=== PATIENT | female | born 1945 | race Caucasian/White ===

== ENCOUNTER 2021-11-04 10:16 | Inpatient (IN) | payer MEDICARE, BC ==
[~2021-11-04] VITALS: Ht 165.1 cm; Wt 63.5 kg
[2021-11-04] MEDS ORDERED: ACETAMINOPHEN 650 MG SUPP.RECT RC ONE ×2 (10:30→10:56)
[2021-11-04] MEDS ORDERED: IV NORMAL SALINE 1000 ML BAG IV ONE ×2 (10:30)
[2021-11-04] MEDS ORDERED: CEFTRIAXONE 1 G in IV DEXTROSE 5% 50 ML IV ONE (10:30)
[2021-11-04] MEDS ORDERED: VANCOMYCIN IV 1,000 MG in IV DEXTROSE 5% 250 ML IV ONE (10:30)
[2021-11-04] MEDS ORDERED: ATOR10TA PO ×2 (10:49→15:27)
[2021-11-04] MEDS ORDERED: FURO-151 PO (10:49)
[2021-11-04] MEDS ORDERED: ASPI81TA31 PO ×2 (10:49→15:27)
[2021-11-04] MEDS ORDERED: CHOL4PAC2 PO ×2 (10:49→15:27)
[2021-11-04] MEDS ORDERED: TRIH2TAB5 PO (10:49)
[2021-11-04] MEDS ORDERED: LEVO50TA8 PO ×2 (10:49→15:27)
[2021-11-04] MEDS ORDERED: RISP2TAB85 PO ×2 (10:49→15:27)
[2021-11-04] MEDS ORDERED: CLON0.1T PO ×2 (10:49→15:27)
[2021-11-04] MEDS ORDERED: CEPH500T PO ×2 (10:49→15:27)
[2021-11-04] MEDS ORDERED: [UNRECOGNIZED DRUG - CODE] PO ×2 (10:49→15:27)
[2021-11-04] MEDS ORDERED: METO100T14 PO (10:49)
[2021-11-04] MEDS ORDERED: CINA30TA2 PO (10:49)
[2021-11-04] MEDS ORDERED: DIVA-78 PO ×2 (10:49→15:27)
--- NOTE | 2021-11-04 10:52 | NUR ---
pt bib ems, placed in 2A, placed on monitors and o2 NC at 6%, sats now 96%, was 80% on RA. iv started in right AC, blood and wound culture collected and sent to lab.
[2021-11-04] MEDS ORDERED: CEFTRIAXONE /D5W 50ML IVPB **ER PYXIS IV ONE (10:56)
[2021-11-04] MEDS ORDERED: VANCOMYCIN IV 200 ML ONE (10:56)
[2021-11-04 11:02] LABS: HEMATOCRIT 29.1 % (31.2-41.9); MEAN CORPUSCULAR HEMOGLOBIN 30.5 uug (24.7-32.8); PLATELET COUNT (AUTO) 196 K/uL (179-408)
--- NOTE | 2021-11-04 11:06 | NUR ---
ER MD spoke to admitting, Dr Hogan. Pt to be admitted to Tele bed.
[2021-11-04 11:24] LABS: ALANINE AMINOTRANSFERASE 14 U/L (14-59); ALKALINE PHOSPHATASE 108 U/L (50-136); ASPARTATE AMINOTRANSFERASE 37 U/L (15-37); BILIRUBIN,DIRECT 0.1 mg/dL (0.0-0.2); BILIRUBIN,TOTAL 0.3 mg/dL (0.2-1.0); CARBON DIOXIDE 29 mmol/L (21-32); CHLORIDE 111 mmol/L (98-107); CREATININE 2.8 mg/dL (0.6-1.3); GLUCOSE 202 mg/dL (74-106); POTASSIUM 3.6 mmol/L (3.5-5.1); TOTAL PROTEIN, SERUM 6.6 g/dL (6.4-8.2)
[2021-11-04 11:25] LABS: UREA NITROGEN, BLOOD 90 mg/dL (7-18)
[2021-11-04 11:28] LABS: *BILIRUBIN,URIN NEGATIVE (NEGATIVE); *BLOOD, URINE 1+ (NEGATIVE); *CLARITY,URINE CLOUDY (CLEAR); *COLOR,URINE YELLOW (YELLOW); *KETONES,URINE NEGATIVE (NEGATIVE); *UROBILINOGEN,URINE 0.2 E.U./dl (NORMAL); LEUKOCYTE ESTERASE ,URINE 3+ (NEGATIVE); NITRITE, URINE NEGATIVE (NEGATIVE); PH,URINE 5.5 (5.0-8.0); UGLUCOSE NEGATIVE (NEGATIVE)
[2021-11-04 12:17] LABS: BACTERIA,URINE FEW /HPF (NONE SEEN); SQUAMOUS EPITHELIAL CELL,UR FEW /HPF (NONE SEEN); WBC,URINE 50-80 /HPF (0-3)
--- NOTE | 2021-11-04 12:25 | NUR ---
report called in at 1226, spoke to Julian ARCINIEGA. Pt to be transfered.
[2021-11-04 12:57] VITALS: BP 161/74
--- NOTE | 2021-11-04 12:59 | NUR ---
patient taken upstairs with chart and belongings. pt in stable condition.
--- NOTE | 2021-11-04 14:33 | NUR ---
Admitted patient from ED dx severe sepsis at 1300. Upon admission patient is lethargic and slow to respond and is oriented to name only. On 2 lpm no ss of pain or respiratory distress. SR on telemonitor. IV Vancomycin still infusing via rfa iv. FC is intact cloudy urine and sediments noted. Open wounds to bilateral heels are noted and filed. Routine admission done. Dr. Riggs is made aware.
[2021-11-04] MEDS: REMEDY ESSENTIAL ZINC PASTE 113 GM TOP SCH ×2 (14:53→20:34)
[2021-11-04] MEDS ORDERED: CINA60TA4 PO (15:27)
[2021-11-04] MEDS ORDERED: FURO40TA5 PO (15:27)
[2021-11-04] MEDS ORDERED: METO-358 PO ×2 (15:27→18:48)
--- NOTE | 2021-11-04 15:27 | NUR ---
Called [facility] and [facility] ([phone]) and spoke with Karen and obtained patient's active medications. Medications are entered in system and MD made aware to recondile. Per Karen, patient's responsible democrat is her brother Imer [phone].
[2021-11-04 16:00] VITALS: BP 168/87
--- NOTE | 2021-11-04 16:15 | NUR ---
Dr. Riggs made aware of bp 168/87 hr 98 with order for vasotec 2.5mg iv q6 prn for sbp above 150 noted.
[2021-11-04] MEDS ORDERED: ENALAPRILAT DIHYDRATE 1.25 MG/1 ML VIAL IV PRN (16:30)
[2021-11-04] MEDS ORDERED: ONDANSETRON 4 MG/2 ML VIAL IV PRN (17:00)
[2021-11-04] MEDS ORDERED: ACETAMINOPHEN 325 MG TABLET PO PRN (17:00)
[2021-11-04] MEDS ORDERED: TEMAZEPAM 15 MG CAPSULE PO PRN (17:00)
[2021-11-04] MEDS ORDERED: HYDROCODONE/APAP 5-325MG TABLET PO PRN (17:00)
[2021-11-04] MEDS ORDERED: ENALAPRILAT DIHYDRATE 1.25 MG/1 ML VIAL IV ONE (17:30)
[2021-11-04] MEDS: POTASSIUM CHLORIDE 20 MEQ in IV 1/2NS 1000 ML 1,000 ML IV PRN (17:52)
[2021-11-04] MEDS: ATORVASTATIN 10 MG TABLET PO SCH (20:21)
[2021-11-04] MEDS: risperiDONE 2 MG TABLET PO SCH ×2 (20:21→20:27)
[2021-11-04] MEDS: CLONIDINE HCL 0.1 MG TABLET PO SCH (20:21)
[2021-11-04] MEDS: DOCUSATE SODIUM 100 MG CAPSULE PO SCH (20:22)
[2021-11-04] MEDS: METOPROLOL TARTRATE 50 MG TABLET PO SCH (20:22)
[2021-11-04] MEDS: DIVALPROEX 500 MG TABLET.DR PO SCH (20:25)
[2021-11-04 20:43] VITALS: BP 129/61
[2021-11-04] MEDS ORDERED: MEROPENEM 500 MG in IV NORMAL SALINE 50 ML IV SCH ×2 (22:00→22:45)
[2021-11-04] MEDS ORDERED: DOXYCYCLINE HYCLATE IV 100 MG in IV DEXTROSE 5% 100 ML IV SCH (22:05)
[2021-11-04] MEDS ORDERED: MEROPENEM 500 MG VIAL IV ONE (22:44)
[2021-11-04] MEDS ORDERED: DOXYCYCLINE HYCLATE 100 MG INJ IV ONE (22:47)
[2021-11-05 00:29] VITALS: BP 159/74
[2021-11-05 04:40] VITALS: BP 169/71
[2021-11-05] MEDS: LEVOTHYROXINE SODIUM 50 MCG TABLET PO SCH (06:21)
[2021-11-05] MEDS: PANTOPRAZOLE SODIUM 40 MG TABLET.DR PO SCH (06:21)
[2021-11-05 06:32] LABS: HEMATOCRIT 26.7 % (31.2-41.9); MEAN CORPUSCULAR HEMOGLOBIN 31.1 uug (24.7-32.8); MEAN CORPUSCULAR VOLUME 94.7 fL (75.5-95.3); PLATELET COUNT (AUTO) 187 K/uL (179-408)
[2021-11-05] MEDS: POTASSIUM CHLORIDE 20 MEQ in IV 1/2NS 1000 ML 1,000 ML IV PRN (06:46)
[2021-11-05 07:14] LABS: ALANINE AMINOTRANSFERASE 8 U/L (14-59); ALKALINE PHOSPHATASE 95 U/L (50-136); ASPARTATE AMINOTRANSFERASE 27 U/L (15-37); BILIRUBIN,TOTAL 0.3 mg/dL (0.2-1.0); CARBON DIOXIDE 25 mmol/L (21-32); CHLORIDE 116 mmol/L (98-107); CREATININE 2.4 mg/dL (0.6-1.3); GLUCOSE 181 mg/dL (74-106); HDL CHOLESTEROL 46 mg/dL (40-60); MAGNESIUM 2.1 mg/dL (1.8-2.4); PHOSPHOROUS 3.5 mg/dL (2.5-4.9); POTASSIUM 4.2 mmol/L (3.5-5.1); TOTAL PROTEIN, SERUM 6.2 g/dL (6.4-8.2); TRIGLYCERIDES 138 MG/DL (30-150); UREA NITROGEN, BLOOD 77 mg/dL (7-18)
[2021-11-05 07:20] LABS: THYROID STIMULATING HORMONE 2.295 mIU/mL (0.358-3.740)
[2021-11-05 07:31] LABS: CHOLESTEROL 108 mg/dL (<200)
--- NOTE | 2021-11-05 08:00 | NUR ---
AWAKE ALERT AND RESPONSIVE BUT VERY SLUGGISH., FOLLOWS SIMPLE COMMANDS. DENIES PAIN , O2 SAT 88-90% ON 2L NC. PLACED ON 3L O2 SAT WENT UP TO 95%. REPOSITIONED COMFORTABLY
[2021-11-05 08:12] LABS: IRON, SERUM 21 ug/dL (50-175)
[2021-11-05 08:44] LABS: VANCOMYCIN,RANDOM 13.3 ug/mL (18.0-26.0)
[2021-11-05] MEDS: ASPIRIN 81 MG TAB.CHEW PO SCH (09:09)
[2021-11-05] MEDS: DIVALPROEX 500 MG TABLET.DR PO SCH (09:09)
[2021-11-05] MEDS: CHOLESTYRAMINE/SUCROSE 4 GM PACKET PO SCH (09:10)
[2021-11-05] MEDS: CINACALCET HCL 30 MG TABLET PO SCH (09:10)
[2021-11-05] MEDS: REMEDY ESSENTIAL ZINC PASTE 113 GM TOP SCH ×2 (09:11→22:40)
[2021-11-05] MEDS: CLONIDINE HCL 0.1 MG TABLET PO SCH ×2 (09:17→17:37)
[2021-11-05] MEDS: METOPROLOL TARTRATE 50 MG TABLET PO SCH ×2 (09:18→22:38)
--- NOTE | 2021-11-05 09:30 | NUR ---
MIDLINE INSERTED LEFT UPPER ARM
[2021-11-05] MEDS ORDERED: CEFTRIAXONE 1 G in IV DEXTROSE 5% 50 ML IV SCH (10:00)
--- NOTE | 2021-11-05 10:00 | NUR ---
SEEN BY HOSPITALIST FOR FOLLOW-UP WITH ORDERS. SEE NOTES
[2021-11-05] MEDS: DOXYCYCLINE HYCLATE IV 100 MG in IV DEXTROSE 5% 100 ML IV SCH ×2 (10:37→22:43)
[2021-11-05] MEDS ORDERED: ALBUTEROL SULFATE 2.5 MG/3 ML NEBU IH SCH (11:30)
--- NOTE | 2021-11-05 11:30 | NUR ---
SEEN BY SPEECH THERAPY FOR SWALLOW EVAL, ADVISED NPO AND WILL FOLLOW-UP IN AM.
[2021-11-05] MEDS: FUROSEMIDE 40 MG/4 ML VIAL IV SCH (11:41)
[2021-11-05] MEDS: MEROPENEM 0.5 G in IV NORMAL SALINE 50 ML IV SCH (11:41)
[2021-11-05] MEDS: methylPREDNISolone SOD SUCC 40 MG/ML VIAL IV SCH ×2 (11:43→22:36)
[2021-11-05] MEDS: IPRATROPIUM BROMIDE 0.5 MG/2.5 ML NEBU NEB SCH ×4 (11:54→23:10)
[2021-11-05 12:00] VITALS: BP 148/70
--- NOTE | 2021-11-05 12:14 | NUR ---
SEEN BY RT SUCTIONED ORALLY WITH MODERATE AMOUNT OF FOOD PREVIOUSLY TAKEN. HHN GIVEN AFTER
--- NOTE | 2021-11-05 12:25 | NUR ---
WOUND CARE CONSULT: PT PRESENTS WITH SACRAL INTACT DEEP TISSUE INJURY WITH SCARRING AND BILATERAL HEEL WOUNDS, PRESENT ON ADMISSION. DR MATUTE CALLED FOR DPM CONSULT. RECOMMENDATIONS MADE FOR SKIN PROTECTION. DISCUSSED WITH NURSING STAFF. FIRST STEP LOW AIRLOSS MATTRESS IS ON ORDER. MD IN AGREEMENT WITH PLAN OF CARE.
[2021-11-05] MEDS ORDERED: ALBUTEROL SULFATE 2.5 MG/3 ML NEBU NEB SCH (13:32)
[2021-11-05] MEDS: ALBUTEROL SULFATE 2.5 MG/3 ML NEBU NEB SCH ×3 (15:12→23:10)
[2021-11-05 16:00] VITALS: BP 161/74
--- NOTE | 2021-11-05 17:28 | NUR ---
KEEP ON NPO TILL FURTHER ORDERS WILL F/U SPEECH, REMAINS SR ON MONITOR HR 93.
[2021-11-05] MEDS: DIVALPROEX SPRINKLE 125 MG CAP.SPRINK PO SCH (17:37)
[2021-11-05 20:00] VITALS: BP 131/56
--- NOTE | 2021-11-05 21:00 | NUR ---
RECD PT IN BED, O2 INHALATION AT 3L/MIN VIA NASAL CANNULA,MIDLINE ON LEFT UPPER ARM PATENT AND INTACT. IVF INFUSING WELL.ASPIRATION PRECAUTION OBSERVED,MRSA ON WOUND ON LOWER EXTREMITIES NOTED. CATH IN PLACE,REPOSITIONED FOR COMFORT .
[2021-11-05] MEDS: DOCUSATE SODIUM 100 MG CAPSULE PO SCH (22:36)
[2021-11-05] MEDS: ATORVASTATIN 10 MG TABLET PO SCH (22:37)
[2021-11-05] MEDS: risperiDONE 2 MG TABLET PO SCH (22:38)
--- NOTE | 2021-11-06 | NUR ---
SPUTUM SPECIMEN SENT TO LAB.DUE MEDS GIVEN.SLEPT AT LONG INTERVALS.KEPT DRY AND CLEAN.
[2021-11-06 00:14] VITALS: BP 89/45
[2021-11-06] MEDS: MEROPENEM 0.5 G in IV NORMAL SALINE 50 ML IV SCH ×3 (00:42→23:39)
[2021-11-06] MEDS: IPRATROPIUM BROMIDE 0.5 MG/2.5 ML NEBU NEB SCH ×6 (03:27→23:56)
[2021-11-06] MEDS: ALBUTEROL SULFATE 2.5 MG/3 ML NEBU NEB SCH ×6 (03:27→23:56)
[2021-11-06 04:05] VITALS: BP 105/49
--- NOTE | 2021-11-06 05:43 | NUR ---
AM CARE DONE, LEFT ARM APPEARS SWOLLEN, KEPT ELEVATED ON PILLOW.SKIN INTEGRITY ISSUES NOTED, PHOTOS TAKEN.
--- NOTE | 2021-11-06 05:45 | NUR ---
STILL ON TELE ,SINUS RHYTHM 98.NO ACUTE DISTRESS NOTED.
--- NOTE | 2021-11-06 05:46 | NUR ---
ALERT/ORIENTED X2.NO COMPLAINTS PRESENTED.
[2021-11-06] MEDS: PANTOPRAZOLE SODIUM 40 MG TABLET.DR PO SCH (06:55)
[2021-11-06] MEDS: LEVOTHYROXINE SODIUM 50 MCG TABLET PO SCH (06:55)
--- NOTE | 2021-11-06 07:53 | NUR ---
RECEIVED PATIENT RESTING COMFORTABLY IN BED, BREATHING TX GIVEN ROUTINELY, O2 AT 3L NC SATURATING 96%. NO SIGNS OF ACUTE PAIN. SR ON MONITOR
[2021-11-06 08:07] LABS: HEMATOCRIT 28.3 % (31.2-41.9); MEAN CORPUSCULAR HEMOGLOBIN 30.3 uug (24.7-32.8); MEAN CORPUSCULAR VOLUME 96.5 fL (75.5-95.3); PLATELET COUNT (AUTO) 207 K/uL (179-408)
[2021-11-06 09:00] LABS: CARBON DIOXIDE 23 mmol/L (21-32); CHLORIDE 115 mmol/L (98-107); CREATININE 3.1 mg/dL (0.6-1.3); MAGNESIUM 2.2 mg/dL (1.8-2.4); POTASSIUM 4.4 mmol/L (3.5-5.1)
[2021-11-06] MEDS: DIVALPROEX SPRINKLE 125 MG CAP.SPRINK PO SCH ×2 (09:00→16:31)
[2021-11-06] MEDS: CHOLESTYRAMINE/SUCROSE 4 GM PACKET PO SCH (09:00)
[2021-11-06] MEDS: CLONIDINE HCL 0.1 MG TABLET PO SCH ×2 (09:00→16:31)
[2021-11-06] MEDS: ASPIRIN 81 MG TAB.CHEW PO SCH (09:00)
[2021-11-06] MEDS: FUROSEMIDE 40 MG/4 ML VIAL IV SCH (09:07)
[2021-11-06] MEDS: methylPREDNISolone SOD SUCC 40 MG/ML VIAL IV SCH (09:07)
[2021-11-06] MEDS: REMEDY ESSENTIAL ZINC PASTE 113 GM TOP SCH ×2 (09:08→20:23)
[2021-11-06] MEDS: DOXYCYCLINE HYCLATE IV 100 MG in IV DEXTROSE 5% 100 ML IV SCH ×2 (09:11→21:04)
[2021-11-06] MEDS ORDERED: IV D5W 1000ML 1,000 ML IV PRN (09:15)
[2021-11-06 09:25] LABS: GLUCOSE 422 mg/dL (74-106); UREA NITROGEN, BLOOD 96 mg/dL (7-18)
[2021-11-06] MEDS ORDERED: IV D5 1/2 NS 1000 ML 1,000 ML IV PRN (09:45)
--- NOTE | 2021-11-06 09:45 | NUR ---
SEEN BY DR MONDRAGON FOR FOLLOW-UP NOTED LABS WITH ORDERE TO CHANGE IV TO D51/2 NS AT 100 MLS/HR
--- NOTE | 2021-11-06 10:12 | NUR ---
SW consult was requested for a patient on medsurg to assess current living situation. Patient is a 76-year-old female. SW and community case manager, Efrain, called the patients brotherImer ([phone]) and he states that [place] [address] ([phone]) since 03/26/2021. Patients brotherImer ([phone]) states that [facility] has taken good care of his sister. SW and community case manager, Efrain, called [facility] ([phone]) and the college administrator Karen, states that the patient came to [facility] with a wound on her left foot that they have been treating at [facility]. This SW spoke with Efrain community case manager who will follow up with the discharge plan for the patient to go to a fdc facility.
[2021-11-06 12:00] VITALS: BP 123/61
[2021-11-06] MEDS ORDERED: DEXTROSE 50% 50 ML DISP.SYRIN IV PRN (13:00)
[2021-11-06] MEDS ORDERED: METOPROLOL TARTRATE 5 MG/5 ML VIAL IVP PRN (13:15)
[2021-11-06] MEDS: METOPROLOL TARTRATE 50 MG TABLET PO SCH ×2 (14:00→20:21)
--- NOTE | 2021-11-06 14:00 | NUR ---
NGT FR 14 INSERTED LEFT NARES FOR FEEDING PURPOSES FOLLOWED WITH CXR. AWAITING RESULTS FOR PLACEMENT
[2021-11-06] MEDS: BLOOD SUGAR DIAGNOSTIC 1 EACH STRIP VI SCH ×3 (14:18→23:53)
[2021-11-06] MEDS: INSULIN REGULAR, HUMAN 300 UNIT/3 ML VIAL SQ PRN ×3 (14:20→23:57)
[2021-11-06] MEDS: HEPARIN SODIUM,PORCINE 5,000 UNITS/ML VIAL SQ SCH ×2 (14:21→20:22)
--- NOTE | 2021-11-06 14:22 | NUR ---
FINGER STICK BS 498 DR DURHAM AROUND AND SAID CONTINUE NPO SS
[2021-11-06 16:00] VITALS: BP 140/59
[2021-11-06] MEDS: GLUCERNA 1.2 1000ML LIQUID NG PRN (16:29)
--- NOTE | 2021-11-06 16:30 | NUR ---
GLUCERNA 1.2 STARTED ORDERED VIA NGT, PATIENT TOLERATING FAIRLY
--- NOTE | 2021-11-06 18:06 | NUR ---
LESLEY DURHAM NOTIFIED OF BS 445 AND ADVISE TO CONTINUE SS
[2021-11-06 20:15] VITALS: BP 137/55
[2021-11-06] MEDS: risperiDONE 2 MG TABLET PO SCH (20:19)
[2021-11-06] MEDS: ATORVASTATIN 10 MG TABLET PO SCH (20:21)
[2021-11-06] MEDS: DOCUSATE SODIUM 100 MG/10 ML LIQUID UDC GT SCH (21:04)
[2021-11-07] VITALS (7 sets, daily range): BP systolic 117–148; BP diastolic 50–69
[2021-11-07] MEDS: IV NS 1000 ML 1,000 ML IV PRN ×3 (00:16→20:16)
[2021-11-07] MEDS ORDERED: DEXTROSE 50% 50 ML DISP.SYRIN IV PRN ×2 (00:30→10:00)
[2021-11-07] MEDS ORDERED: INSULIN REGULAR, HUMAN 300 UNIT/3 ML VIAL SQ PRN (00:30)
--- NOTE | 2021-11-07 00:30 | NUR ---
Blood sugar 450; referred to Dr Cisse with new orders;; started on water flushes; and IV changed; needs attended; low air mattress applied to bed
[2021-11-07] MEDS: ALBUTEROL SULFATE 2.5 MG/3 ML NEBU NEB SCH ×5 (03:29→21:07)
[2021-11-07] MEDS: IPRATROPIUM BROMIDE 0.5 MG/2.5 ML NEBU NEB SCH ×5 (03:29→21:06)
[2021-11-07] MEDS ORDERED: BLOOD SUGAR DIAGNOSTIC 1 EACH STRIP VI SCH (06:00)
[2021-11-07] MEDS: LEVOTHYROXINE SODIUM 50 MCG TABLET PO SCH (06:12)
[2021-11-07] MEDS: PANTOPRAZOLE ORAL SUSPENSION 40 MG SUSPDR.PKT NG SCH (06:12)
[2021-11-07 06:22] LABS: *CREATININE,URINE 95.1 mg/dL (30-125)
--- NOTE | 2021-11-07 06:57 | NUR ---
pt's blood sugar 385 and covered; tolerated NGT feeding and will be at 50 ml/hr at 0800; needs attended; safety maintained; pt found to be pulling out ngt and oxygen; placed mittens for now for safety.
[2021-11-07 07:26] LABS: HEMATOCRIT 22.8 % (31.2-41.9); MEAN CORPUSCULAR HEMOGLOBIN 30.9 uug (24.7-32.8); MEAN CORPUSCULAR VOLUME 95.9 fL (75.5-95.3); PLATELET COUNT (AUTO) 196 K/uL (179-408)
[2021-11-07 07:34] LABS: CARBON DIOXIDE 26 mmol/L (21-32); CHLORIDE 116 mmol/L (98-107); CREATININE 3.3 mg/dL (0.6-1.3); MAGNESIUM 2.1 mg/dL (1.8-2.4); PHOSPHOROUS 3.6 mg/dL (2.5-4.9); POTASSIUM 4.3 mmol/L (3.5-5.1)
[2021-11-07 08:11] LABS: GLUCOSE 416 mg/dL (74-106); UREA NITROGEN, BLOOD 112 mg/dL (7-18)
[2021-11-07] MEDS: CLONIDINE HCL 0.1 MG TABLET PO SCH ×2 (09:11→17:48)
[2021-11-07] MEDS: DIVALPROEX SPRINKLE 125 MG CAP.SPRINK PO SCH ×2 (09:11→17:48)
[2021-11-07] MEDS: METOPROLOL TARTRATE 50 MG TABLET PO SCH ×2 (09:12→21:01)
[2021-11-07] MEDS: CHOLESTYRAMINE/SUCROSE 4 GM PACKET PO SCH (09:12)
[2021-11-07] MEDS: DOXYCYCLINE HYCLATE IV 100 MG in IV DEXTROSE 5% 100 ML IV SCH (09:13)
[2021-11-07] MEDS: CINACALCET HCL 30 MG TABLET PO SCH (09:15)
[2021-11-07] MEDS: REMEDY ESSENTIAL ZINC PASTE 113 GM TOP SCH ×2 (09:16→21:03)
[2021-11-07] MEDS: MEROPENEM 0.5 G in IV NORMAL SALINE 50 ML IV SCH ×2 (11:14→22:54)
[2021-11-07] MEDS: BLOOD SUGAR DIAGNOSTIC 1 EACH STRIP VI SCH ×3 (11:23→23:14)
[2021-11-07] MEDS: INSULIN REGULAR, HUMAN 300 UNIT/3 ML VIAL SQ PRN ×2 (11:25→23:16)
[2021-11-07] MEDS ORDERED: VANCOMYCIN IV 1,000 MG in IV DEXTROSE 5% 250 ML IV ONE (14:00)
--- NOTE | 2021-11-07 18:07 | NUR ---
No events during shift. No signs of acute distress, pt tolerating feeding well, no residual volume.
[2021-11-07] MEDS: risperiDONE 2 MG TABLET PO SCH (21:00)
[2021-11-07] MEDS: DOCUSATE SODIUM 100 MG/10 ML LIQUID UDC GT SCH (21:00)
[2021-11-07] MEDS: ATORVASTATIN 10 MG TABLET PO SCH (21:02)
[2021-11-08] VITALS: BP 122/51
[2021-11-08] MEDS: IPRATROPIUM BROMIDE 0.5 MG/2.5 ML NEBU NEB SCH ×7 (00:02→23:52)
[2021-11-08] MEDS: ALBUTEROL SULFATE 2.5 MG/3 ML NEBU NEB SCH ×7 (00:02→23:52)
[2021-11-08 04:00] VITALS: BP 133/67
[2021-11-08] MEDS: LEVOTHYROXINE SODIUM 50 MCG TABLET PO SCH (06:00)
[2021-11-08] MEDS: PANTOPRAZOLE ORAL SUSPENSION 40 MG SUSPDR.PKT NG SCH (06:00)
[2021-11-08] MEDS: BLOOD SUGAR DIAGNOSTIC 1 EACH STRIP VI SCH ×3 (06:01→18:00)
[2021-11-08] MEDS: INSULIN REGULAR, HUMAN 300 UNIT/3 ML VIAL SQ PRN ×3 (06:03→18:02)
[2021-11-08 07:54] LABS: CARBON DIOXIDE 22 mmol/L (21-32); CHLORIDE 121 mmol/L (98-107); CREATININE 2.6 mg/dL (0.6-1.3); GLUCOSE 221 mg/dL (74-106); MAGNESIUM 1.8 mg/dL (1.8-2.4); PHOSPHOROUS 3.4 mg/dL (2.5-4.9); POTASSIUM 4.2 mmol/L (3.5-5.1); VANCOMYCIN,RANDOM 18.6 ug/mL (18.0-26.0)
[2021-11-08 08:07] LABS: UREA NITROGEN, BLOOD 109 mg/dL (7-18)
[2021-11-08 08:40] LABS: MEAN CORPUSCULAR VOLUME 95.6 fL (75.5-95.3); PLATELET COUNT (AUTO) 203 K/uL (179-408)
[2021-11-08] MEDS: DIVALPROEX SPRINKLE 125 MG CAP.SPRINK PO SCH (09:27)
[2021-11-08] MEDS: CHOLESTYRAMINE/SUCROSE 4 GM PACKET PO SCH (09:28)
[2021-11-08] MEDS: CLONIDINE HCL 0.1 MG TABLET PO SCH (09:28)
[2021-11-08] MEDS: REMEDY ESSENTIAL ZINC PASTE 113 GM TOP SCH ×2 (09:28→22:20)
[2021-11-08] MEDS: METOPROLOL TARTRATE 50 MG TABLET PO SCH (09:28)
[2021-11-08] MEDS: MEROPENEM 0.5 G in IV NORMAL SALINE 50 ML IV SCH ×2 (11:19→23:22)
[2021-11-08] MEDS: GLUCERNA 1.2 1000ML LIQUID NG PRN (11:46)
[2021-11-08 12:00] VITALS: BP 104/65
[2021-11-08] MEDS ORDERED: VANCOMYCIN IV 1,000 MG in IV DEXTROSE 5% 250 ML IV ONE (12:00)
[2021-11-08] MEDS ORDERED: HYDROCODONE/APAP 5-325MG TABLET NG PRN (14:15)
[2021-11-08] MEDS: IV NS 1000 ML 1,000 ML IV PRN (15:47)
[2021-11-08 16:00] VITALS: BP 148/58
[2021-11-08] MEDS: CLONIDINE HCL 0.1 MG TABLET NG SCH (17:40)
[2021-11-08] MEDS: DIVALPROEX SPRINKLE 125 MG CAP.SPRINK GT SCH (17:40)
--- NOTE | 2021-11-08 18:53 | NUR ---
Pt IV was infiltrated, removed and reinserted new peripheral IV 22g on right forearm. Midline was ordered.
--- NOTE | 2021-11-08 19:35 | NUR ---
Received patient in bed, awake, response to verbal stimuli, hob elevated, no NGT tolerate well, no nausea no vomiting noted, no diarrhea noted, patient has right upper arm midline patent, no s/s of pain at this time. Patient cooperative with care, no pulling of IV lines, no pulling of NGT, mittens is off at this time. cont to monitor.
[2021-11-08 20:00] VITALS: BP 125/46
[2021-11-08] MEDS: DOCUSATE SODIUM 100 MG/10 ML LIQUID UDC GT SCH (20:43)
[2021-11-08] MEDS: METOPROLOL TARTRATE 50 MG TABLET NG SCH (20:43)
[2021-11-08] MEDS: risperiDONE 2 MG TABLET NG SCH (20:44)
[2021-11-08] MEDS ORDERED: TEMAZEPAM 15 MG CAPSULE NG PRN (21:00)
[2021-11-08] MEDS: ATORVASTATIN 10 MG TABLET NG SCH (22:17)
[2021-11-09] MEDS: BLOOD SUGAR DIAGNOSTIC 1 EACH STRIP VI SCH ×5 (00:23→23:45)
[2021-11-09] MEDS: INSULIN REGULAR, HUMAN 300 UNIT/3 ML VIAL SQ PRN ×5 (00:29→23:48)
[2021-11-09] MEDS: ALBUTEROL SULFATE 2.5 MG/3 ML NEBU NEB SCH ×6 (03:26→23:33)
[2021-11-09] MEDS: IPRATROPIUM BROMIDE 0.5 MG/2.5 ML NEBU NEB SCH ×6 (03:26→23:33)
[2021-11-09 04:00] VITALS: BP 146/64
--- NOTE | 2021-11-09 05:51 | NUR ---
Patient asleep but arousable, hob elevated no sob no chest pain, no complain of pain, cont NGT patent, no residual noted, turn and reposition, remain on contact isolation, cont to monitor.
[2021-11-09] MEDS: PANTOPRAZOLE ORAL SUSPENSION 40 MG SUSPDR.PKT NG SCH (06:13)
[2021-11-09] MEDS: LEVOTHYROXINE SODIUM 50 MCG TABLET NG SCH (06:13)
[2021-11-09 08:21] LABS: MEAN CORPUSCULAR HEMOGLOBIN 30.7 uug (24.7-32.8); MEAN CORPUSCULAR VOLUME 94.8 fL (75.5-95.3); PLATELET COUNT (AUTO) 187 K/uL (179-408)
[2021-11-09 08:30] VITALS: BP 146/64
[2021-11-09 08:42] LABS: CARBON DIOXIDE 24 mmol/L (21-32); CHLORIDE 121 mmol/L (98-107); CREATININE 2.2 mg/dL (0.6-1.3); GLUCOSE 193 mg/dL (74-106); MAGNESIUM 1.6 mg/dL (1.8-2.4); PHOSPHOROUS 2.9 mg/dL (2.5-4.9); POTASSIUM 4.5 mmol/L (3.5-5.1); VANCOMYCIN,RANDOM 24.4 ug/mL (18.0-26.0)
[2021-11-09 08:45] LABS: UREA NITROGEN, BLOOD 88 mg/dL (7-18)
[2021-11-09] MEDS: DIVALPROEX SPRINKLE 125 MG CAP.SPRINK GT SCH ×2 (09:22→16:05)
[2021-11-09] MEDS: CLONIDINE HCL 0.1 MG TABLET NG SCH ×2 (09:23→16:05)
[2021-11-09] MEDS: CHOLESTYRAMINE/SUCROSE 4 GM PACKET PO SCH (09:23)
[2021-11-09] MEDS: METOPROLOL TARTRATE 50 MG TABLET NG SCH ×2 (09:23→20:20)
[2021-11-09] MEDS: REMEDY ESSENTIAL ZINC PASTE 113 GM TOP SCH ×2 (09:24→22:10)
[2021-11-09] MEDS: CINACALCET HCL 30 MG TABLET PO SCH (09:26)
[2021-11-09] MEDS ORDERED: MAGNESIUM OXIDE 400 MG TABLET PO ONE ×2 (11:00)
--- NOTE | 2021-11-09 11:02 | NUR ---
Pt had a swallow eval done again today, pt was able to swallow applesauce without choking, pt is able to clear throat and follow command. will attempt puree meal for lunch time.
[2021-11-09] MEDS: MEROPENEM 0.5 G in IV NORMAL SALINE 50 ML IV SCH (11:41)
[2021-11-09] MEDS: IV D5W 1000ML 1,000 ML IV PRN ×2 (11:46→21:00)
[2021-11-09 12:34] VITALS: BP 144/57
[2021-11-09 15:50] VITALS: BP 128/53
[2021-11-09] MEDS: FLUCONAZOLE 100 MG TABLET PO SCH (16:04)
[2021-11-09] MEDS: CEFEPIME HCL 1 G in IV DEXTROSE 5% 50 ML IV SCH (16:07)
[2021-11-09] MEDS: GLUCERNA 1.2 1000ML LIQUID NG PRN (16:10)
--- NOTE | 2021-11-09 18:27 | NUR ---
Pt titrated to 2L NC, goal is for SpO2 to remain between 88-93%. will endorse to continue to titrate as tolerated.
[2021-11-09 20:06] VITALS: BP 136/55
[2021-11-09] MEDS: ATORVASTATIN 10 MG TABLET NG SCH (20:19)
[2021-11-09] MEDS: DOCUSATE SODIUM 100 MG/10 ML LIQUID UDC GT SCH (20:19)
[2021-11-09] MEDS: risperiDONE 2 MG TABLET NG SCH (20:21)
[2021-11-09] MEDS ORDERED: CEFEPIME HCL 1 G in IV DEXTROSE 5% 50 ML IV SCH (22:00)
[2021-11-10] MEDS: IPRATROPIUM BROMIDE 0.5 MG/2.5 ML NEBU NEB SCH ×6 (03:36→23:08)
[2021-11-10] MEDS: ALBUTEROL SULFATE 2.5 MG/3 ML NEBU NEB SCH ×6 (03:36→23:08)
[2021-11-10 04:00] VITALS: BP 130/65
[2021-11-10] MEDS: BLOOD SUGAR DIAGNOSTIC 1 EACH STRIP VI SCH ×4 (05:04→21:15)
[2021-11-10] MEDS: LEVOTHYROXINE SODIUM 50 MCG TABLET NG SCH (06:02)
[2021-11-10] MEDS: PANTOPRAZOLE ORAL SUSPENSION 40 MG SUSPDR.PKT NG SCH (06:02)
[2021-11-10] MEDS: INSULIN REGULAR, HUMAN 300 UNIT/3 ML VIAL SQ PRN ×3 (06:04→21:15)
--- NOTE | 2021-11-10 06:08 | NUR ---
Patient asleep but arousable, no sob no chest pain, cont on NGT tolerate well no n/v noted no diarrhea noted, kept HOB elevated, turn and reposition, temple cath patent, remain on contact isolation, cont to monitor.
[2021-11-10 07:13] LABS: MEAN CORPUSCULAR HEMOGLOBIN 30.9 uug (24.7-32.8); MEAN CORPUSCULAR VOLUME 94.6 fL (75.5-95.3); PLATELET COUNT (AUTO) 160 K/uL (179-408)
[2021-11-10 07:16] LABS: HEMATOCRIT 20.7 % (31.2-41.9)
[2021-11-10 07:45] LABS: CARBON DIOXIDE 25 mmol/L (21-32); CHLORIDE 114 mmol/L (98-107); MAGNESIUM 1.6 mg/dL (1.8-2.4); PHOSPHOROUS 2.8 mg/dL (2.5-4.9); POTASSIUM 4.4 mmol/L (3.5-5.1); UREA NITROGEN, BLOOD 75 mg/dL (7-18); VANCOMYCIN,RANDOM 19.8 ug/mL (18.0-26.0)
[2021-11-10 07:53] LABS: GLUCOSE 357 mg/dL (74-106)
[2021-11-10] MEDS: CLONIDINE HCL 0.1 MG TABLET NG SCH ×2 (08:28→16:03)
[2021-11-10] MEDS: METOPROLOL TARTRATE 50 MG TABLET NG SCH ×2 (08:28→20:59)
[2021-11-10] MEDS: FLUCONAZOLE 100 MG TABLET PO SCH (08:28)
[2021-11-10] MEDS: DIVALPROEX SPRINKLE 125 MG CAP.SPRINK GT SCH ×2 (08:28→16:02)
[2021-11-10] MEDS: CHOLESTYRAMINE/SUCROSE 4 GM PACKET PO SCH (08:49)
[2021-11-10] MEDS: REMEDY ESSENTIAL ZINC PASTE 113 GM TOP SCH ×2 (08:50→20:59)
[2021-11-10 08:53] LABS: BAND % (MANUAL) 1 % (0-10); LYMPHOCYTES % (MANUAL) 16 % (20-40); MONOCYTES % (MANUAL) 3 % (2-10); NEUTROPHILS % (MANUAL) 80 % (42-75)
[2021-11-10] MEDS ORDERED: MAGNESIUM SULFATE/D5W 100 ML IV SCH (10:30)
[2021-11-10 12:01] VITALS: BP 121/52
[2021-11-10] MEDS ORDERED: DEXTROSE 50% 50 ML DISP.SYRIN IV PRN (13:15)
[2021-11-10] MEDS: IV D5W 1000ML 1,000 ML IV PRN (14:36)
[2021-11-10] MEDS: GLUCERNA 1.2 1000ML LIQUID NG PRN (15:52)
[2021-11-10 15:53] VITALS: BP 113/54
[2021-11-10] MEDS: CEFEPIME HCL 1 G in IV DEXTROSE 5% 50 ML IV SCH (16:12)
[2021-11-10] MEDS ORDERED: METFORMIN HCL 500 MG TABLET PO SCH ×2 (18:00)
[2021-11-10] MEDS ORDERED: VANCOMYCIN IV 750 MG in IV DEXTROSE 5% 250 ML IV ONE (18:00)
[2021-11-10 20:00] VITALS: BP 126/46
[2021-11-10] MEDS: DOCUSATE SODIUM 100 MG/10 ML LIQUID UDC GT SCH (20:58)
[2021-11-10] MEDS: risperiDONE 2 MG TABLET NG SCH (20:58)
[2021-11-10] MEDS: ATORVASTATIN 10 MG TABLET NG SCH (20:59)
[2021-11-10] MEDS: ACETAMINOPHEN 325 MG TABLET NG PRN (23:06)
[2021-11-10 23:22] VITALS: BP 146/64
--- NOTE | 2021-11-10 23:32 | NUR ---
Patient awake hob elevated, on NGT tolerate well, no residual noted, afebrile, cont to monitor.
[2021-11-10 23:36] VITALS: BP 129/49
[2021-11-11] VITALS (7 sets, daily range): BP systolic 125–166; BP diastolic 49–76
--- NOTE | 2021-11-11 00:02 | NUR ---
Patient awake blood transfusion going on, no adverse reaction noted, v/s stable, cont to monitor.
--- NOTE | 2021-11-11 02:14 | NUR ---
Transfused 1 unit PRBC tolerate well no adverse reaction noted, cont to monitor.
[2021-11-11] MEDS: IPRATROPIUM BROMIDE 0.5 MG/2.5 ML NEBU NEB SCH ×5 (03:04→18:30)
[2021-11-11] MEDS: ALBUTEROL SULFATE 2.5 MG/3 ML NEBU NEB SCH ×5 (03:04→18:30)
[2021-11-11] MEDS: PANTOPRAZOLE ORAL SUSPENSION 40 MG SUSPDR.PKT NG SCH (05:50)
[2021-11-11] MEDS: LEVOTHYROXINE SODIUM 50 MCG TABLET NG SCH (05:50)
[2021-11-11] MEDS: BLOOD SUGAR DIAGNOSTIC 1 EACH STRIP VI SCH ×4 (06:16→20:35)
[2021-11-11 06:49] LABS: HEMATOCRIT 27.1 % (31.2-41.9); MEAN CORPUSCULAR VOLUME 92.3 fL (75.5-95.3); PLATELET COUNT (AUTO) 143 K/uL (179-408)
--- NOTE | 2021-11-11 07:06 | NUR ---
Patient awake hob elevate no sob no chest pain noted, turn and repositioned, on NGT tolerate well no n/v no diarrhea, check for placement and no residual noted, cont to monitor.
[2021-11-11 07:24] LABS: CARBON DIOXIDE 24 mmol/L (21-32); CHLORIDE 112 mmol/L (98-107); PHOSPHOROUS 3.7 mg/dL (2.5-4.9); POTASSIUM 5.2 mmol/L (3.5-5.1); UREA NITROGEN, BLOOD 70 mg/dL (7-18)
[2021-11-11 07:34] LABS: GLUCOSE 341 mg/dL (74-106)
[2021-11-11] MEDS: INSULIN REGULAR, HUMAN 300 UNIT/3 ML VIAL SQ PRN ×3 (07:35→16:12)
[2021-11-11 07:48] LABS: VANCOMYCIN,RANDOM 25.1 ug/mL (18.0-26.0)
[2021-11-11] MEDS: CLONIDINE HCL 0.1 MG TABLET NG SCH ×2 (08:24→16:12)
[2021-11-11] MEDS: FLUCONAZOLE 100 MG TABLET PO SCH (08:24)
[2021-11-11] MEDS: DIVALPROEX SPRINKLE 125 MG CAP.SPRINK GT SCH ×2 (08:25→16:12)
[2021-11-11] MEDS: METOPROLOL TARTRATE 50 MG TABLET NG SCH ×2 (08:27→20:34)
[2021-11-11] MEDS: CHOLESTYRAMINE/SUCROSE 4 GM PACKET PO SCH (08:29)
[2021-11-11] MEDS: REMEDY ESSENTIAL ZINC PASTE 113 GM TOP SCH ×2 (08:29→20:34)
[2021-11-11] MEDS ORDERED: DEXTROSE 50% 50 ML DISP.SYRIN IV PRN (09:45)
[2021-11-11] MEDS ORDERED: INSULIN REGULAR, HUMAN 300 UNIT/3 ML VIAL IV ONE (10:00)
[2021-11-11] MEDS ORDERED: DEXTROSE 50% 50 ML DISP.SYRIN IV ONE (10:00)
[2021-11-11] MEDS: CEFEPIME HCL 1 G in IV DEXTROSE 5% 50 ML IV SCH (16:33)
[2021-11-11] MEDS: GLUCERNA 1.2 1000ML LIQUID NG PRN (17:16)
--- NOTE | 2021-11-11 18:00 | NUR ---
mucus discharge noted on the perineal area md made aware
[2021-11-11] MEDS: DOCUSATE SODIUM 100 MG/10 ML LIQUID UDC GT SCH (20:34)
[2021-11-11] MEDS: risperiDONE 2 MG TABLET NG SCH (20:34)
[2021-11-11] MEDS: ATORVASTATIN 10 MG TABLET NG SCH (20:34)
[2021-11-11] MEDS: INSULIN REGULAR, HUMAN 300 UNITS/3 ML VIAL SQ PRN (20:36)
[2021-11-12] MEDS: ALBUTEROL SULFATE 2.5 MG/3 ML NEBU NEB SCH ×6 (00:07→20:49)
[2021-11-12] MEDS: IPRATROPIUM BROMIDE 0.5 MG/2.5 ML NEBU NEB SCH ×6 (00:07→20:49)
[2021-11-12 04:00] VITALS: BP 130/62
[2021-11-12] MEDS: LEVOTHYROXINE SODIUM 50 MCG TABLET NG SCH (06:03)
[2021-11-12] MEDS: PANTOPRAZOLE ORAL SUSPENSION 40 MG SUSPDR.PKT NG SCH (06:04)
[2021-11-12] MEDS: BLOOD SUGAR DIAGNOSTIC 1 EACH STRIP VI SCH ×4 (06:04→21:34)
[2021-11-12 06:57] LABS: HEMATOCRIT 28.3 % (31.2-41.9); MEAN CORPUSCULAR HEMOGLOBIN 31.2 uug (24.7-32.8); MEAN CORPUSCULAR VOLUME 92.5 fL (75.5-95.3); PLATELET COUNT (AUTO) 166 K/uL (179-408)
[2021-11-12 07:29] LABS: CARBON DIOXIDE 26 mmol/L (21-32); CHLORIDE 112 mmol/L (98-107); GLUCOSE 149 mg/dL (74-106); MAGNESIUM 1.9 mg/dL (1.8-2.4); PHOSPHOROUS 3.3 mg/dL (2.5-4.9); POTASSIUM 5.2 mmol/L (3.5-5.1); UREA NITROGEN, BLOOD 67 mg/dL (7-18); VANCOMYCIN,RANDOM 20.7 ug/mL (18.0-26.0)
--- NOTE | 2021-11-12 08:00 | NUR ---
Pt is in no acute distress. Aspiration precaution implemented NGT audible in stomach. No residual noted. HOB elevated. Pt on KCI bed. Edema noted +2 LE's Call light is within reach. Pt awake and alert x 1
[2021-11-12] MEDS ORDERED: DEXTROSE 50% 50 ML DISP.SYRIN IV ONE (09:00)
[2021-11-12] MEDS ORDERED: INSULIN REGULAR, HUMAN 300 UNIT/3 ML VIAL IV ONE (09:00)
--- NOTE | 2021-11-12 09:00 | NUR ---
COLLEGE DEAN fed patient and was coughing even with proper aspiration precaution and thickened liquid. Call light is within reach pt has poor appetite.
[2021-11-12] MEDS: DIVALPROEX SPRINKLE 125 MG CAP.SPRINK GT SCH ×2 (10:11→18:11)
[2021-11-12] MEDS: FLUCONAZOLE 100 MG TABLET PO SCH (10:13)
[2021-11-12] MEDS: METOPROLOL TARTRATE 50 MG TABLET NG SCH ×2 (10:13→21:15)
[2021-11-12] MEDS: CLONIDINE HCL 0.1 MG TABLET NG SCH ×2 (10:15→18:11)
[2021-11-12] MEDS: REMEDY ESSENTIAL ZINC PASTE 113 GM TOP SCH ×2 (10:16→21:16)
[2021-11-12] MEDS: CHOLESTYRAMINE/SUCROSE 4 GM PACKET PO SCH (10:18)
[2021-11-12] MEDS: CINACALCET HCL 30 MG TABLET PO SCH (10:24)
[2021-11-12 11:35] VITALS: BP 163/76
--- NOTE | 2021-11-12 13:00 | NUR ---
ST recommends to keep pt NPO. Notified orchid superintendent Npo status change and put npo sign on door.
[2021-11-12] MEDS: INSULIN REGULAR, HUMAN 300 UNIT/3 ML VIAL SQ PRN (13:07)
[2021-11-12 16:00] VITALS: BP 163/68
[2021-11-12] MEDS: CEFEPIME HCL 1 G in IV DEXTROSE 5% 50 ML IV SCH (18:13)
--- NOTE | 2021-11-12 19:04 | NUR ---
Pt is in no acute distress. Call light is within reach. Gave total of 250 cc flush H2o on my shift as ordered for BID.
[2021-11-12 20:00] VITALS: BP 153/70
[2021-11-12] MEDS ORDERED: VANCOMYCIN IV 750 MG in IV DEXTROSE 5% 250 ML IV ONE (21:00)
[2021-11-12] MEDS: DOCUSATE SODIUM 100 MG/10 ML LIQUID UDC GT SCH (21:14)
[2021-11-12] MEDS: ATORVASTATIN 10 MG TABLET NG SCH (21:15)
[2021-11-12] MEDS: risperiDONE 2 MG TABLET NG SCH (21:15)
[2021-11-12] MEDS: INSULIN REGULAR, HUMAN 300 UNITS/3 ML VIAL SQ PRN (21:41)
[2021-11-13] MEDS: IPRATROPIUM BROMIDE 0.5 MG/2.5 ML NEBU NEB SCH ×7 (00:15→23:20)
[2021-11-13] MEDS: ALBUTEROL SULFATE 2.5 MG/3 ML NEBU NEB SCH ×7 (00:16→23:20)
[2021-11-13 04:00] VITALS: BP 164/73
[2021-11-13 06:34] LABS: HEMATOCRIT 23.8 % (31.2-41.9); MEAN CORPUSCULAR HEMOGLOBIN 31.1 uug (24.7-32.8); MEAN CORPUSCULAR VOLUME 91.7 fL (75.5-95.3); PLATELET COUNT (AUTO) 155 K/uL (179-408)
[2021-11-13] MEDS: PANTOPRAZOLE ORAL SUSPENSION 40 MG SUSPDR.PKT NG SCH (06:45)
[2021-11-13] MEDS: LEVOTHYROXINE SODIUM 50 MCG TABLET NG SCH (06:45)
[2021-11-13 06:59] LABS: CARBON DIOXIDE 28 mmol/L (21-32); CHLORIDE 112 mmol/L (98-107); CREATININE 1.8 mg/dL (0.6-1.3); GLUCOSE 271 mg/dL (74-106); PHOSPHOROUS 3.4 mg/dL (2.5-4.9); POTASSIUM 4.8 mmol/L (3.5-5.1); UREA NITROGEN, BLOOD 59 mg/dL (7-18)
[2021-11-13] MEDS: BLOOD SUGAR DIAGNOSTIC 1 EACH STRIP VI SCH ×4 (07:40→21:04)
[2021-11-13] MEDS: INSULIN REGULAR, HUMAN 300 UNIT/3 ML VIAL SQ PRN ×3 (07:43→18:24)
[2021-11-13] MEDS: REMEDY ESSENTIAL ZINC PASTE 113 GM TOP SCH ×2 (09:00→20:34)
[2021-11-13] MEDS ORDERED: AMLODIPINE 5 MG TABLET PO SCH (09:00)
--- NOTE | 2021-11-13 10:00 | NUR ---
NGT fedding started. glucerna 1.2 @ 50cc/hr
[2021-11-13] MEDS: DIVALPROEX SPRINKLE 125 MG CAP.SPRINK GT SCH ×2 (10:12→18:19)
[2021-11-13] MEDS: FLUCONAZOLE 100 MG TABLET PO SCH (10:12)
[2021-11-13] MEDS: CLONIDINE HCL 0.1 MG TABLET NG SCH ×2 (10:13→18:19)
[2021-11-13] MEDS: METOPROLOL TARTRATE 50 MG TABLET NG SCH ×2 (10:13→20:34)
[2021-11-13] MEDS: CHOLESTYRAMINE/SUCROSE 4 GM PACKET PO SCH (10:14)
[2021-11-13 11:50] VITALS: BP 165/81
[2021-11-13 16:07] VITALS: BP 169/99
[2021-11-13] MEDS: CEFEPIME HCL 1 G in IV DEXTROSE 5% 50 ML IV SCH (18:19)
[2021-11-13 20:00] VITALS: BP 164/84
[2021-11-13] MEDS: DOCUSATE SODIUM 100 MG/10 ML LIQUID UDC GT SCH (20:33)
[2021-11-13] MEDS: risperiDONE 2 MG TABLET NG SCH (20:33)
[2021-11-13] MEDS: ATORVASTATIN 10 MG TABLET NG SCH (20:34)
[2021-11-13] MEDS: INSULIN REGULAR, HUMAN 300 UNITS/3 ML VIAL SQ PRN (21:05)
[2021-11-14 04:00] VITALS: BP 147/71
[2021-11-14] MEDS: IPRATROPIUM BROMIDE 0.5 MG/2.5 ML NEBU NEB SCH ×6 (04:12→22:55)
[2021-11-14] MEDS: ALBUTEROL SULFATE 2.5 MG/3 ML NEBU NEB SCH ×6 (04:12→22:55)
[2021-11-14] MEDS: LEVOTHYROXINE SODIUM 50 MCG TABLET NG SCH ×2 (06:02→11:15)
[2021-11-14] MEDS: PANTOPRAZOLE ORAL SUSPENSION 40 MG SUSPDR.PKT NG SCH ×2 (06:02→11:15)
--- NOTE | 2021-11-14 06:03 | NUR ---
PATIENT SLEPT WELL THROUGHOUT THE NIGHT. PATIENT KEPT NPO SINCE MIDNIGHT ORDERED FOR AM PEG PLACEMENT. VSS. NO RESP. DISTRESS NOTED. NO S/S OF ANY PAIN OR DISCOMFORT. CALL LIGHT IN REACH. ALL NEEDS ATTENDED. WILL CONTINUE TO MONITOR AND ASSESS.
[2021-11-14] MEDS: BLOOD SUGAR DIAGNOSTIC 1 EACH STRIP VI SCH ×4 (06:17→21:17)
[2021-11-14 06:24] LABS: HEMATOCRIT 24.7 % (31.2-41.9); MEAN CORPUSCULAR HEMOGLOBIN 30.8 uug (24.7-32.8); MEAN CORPUSCULAR VOLUME 91.8 fL (75.5-95.3); PLATELET COUNT (AUTO) 170 K/uL (179-408)
[2021-11-14 07:01] LABS: CARBON DIOXIDE 27 mmol/L (21-32); CHLORIDE 113 mmol/L (98-107); CREATININE 1.8 mg/dL (0.6-1.3); GLUCOSE 208 mg/dL (74-106); MAGNESIUM 2.2 mg/dL (1.8-2.4); PHOSPHOROUS 3.6 mg/dL (2.5-4.9); POTASSIUM 4.6 mmol/L (3.5-5.1); UREA NITROGEN, BLOOD 50 mg/dL (7-18)
[2021-11-14 07:20] LABS: VANCOMYCIN,RANDOM 18.7 ug/mL (18.0-26.0)
[2021-11-14] MEDS: REMEDY ESSENTIAL ZINC PASTE 113 GM TOP SCH ×2 (09:00→22:16)
--- NOTE | 2021-11-14 10:15 | NUR ---
RESUME FEEDING FOR NOW. D/C AFTER MIDNIGHT. EGD + PEG PLACEMENT LADARIUS PER DR. RICK.
[2021-11-14] MEDS ORDERED: SENNOSIDES 1 TABLET GT PRN (10:45)
[2021-11-14] MEDS ORDERED: BISACODYL 10 MG SUPP.RECT RC PRN (10:45)
[2021-11-14] MEDS: FLUCONAZOLE 100 MG TABLET PO SCH (11:14)
[2021-11-14] MEDS: CHOLESTYRAMINE/SUCROSE 4 GM PACKET PO SCH (11:14)
[2021-11-14] MEDS: CINACALCET HCL 30 MG TABLET PO SCH (11:14)
[2021-11-14] MEDS: DIVALPROEX SPRINKLE 125 MG CAP.SPRINK GT SCH ×2 (11:14→17:11)
[2021-11-14] MEDS: DOCUSATE SODIUM 100 MG/10 ML LIQUID UDC GT SCH ×3 (11:14→21:15)
[2021-11-14] MEDS: AMLODIPINE 5 MG TABLET PO SCH ×2 (11:15→21:16)
[2021-11-14] MEDS: METOPROLOL TARTRATE 50 MG TABLET NG SCH ×2 (11:15→21:16)
[2021-11-14] MEDS: CLONIDINE HCL 0.1 MG TABLET NG SCH ×2 (11:16→17:11)
[2021-11-14 11:18] VITALS: BP 156/69
[2021-11-14] MEDS: INSULIN REGULAR, HUMAN 300 UNIT/3 ML VIAL SQ PRN ×2 (12:42→17:12)
[2021-11-14 14:24] LABS: *OCCULT BLOOD STOOL POSITIVE (NEGATIVE)
--- NOTE | 2021-11-14 15:17 | NUR ---
MARLYN HEEL WOUND TREATMENT DONE.
[2021-11-14 15:19] VITALS: BP 136/67
[2021-11-14] MEDS ORDERED: VANCOMYCIN IV 750 MG in IV DEXTROSE 5% 250 ML IV ONE (16:00)
[2021-11-14 17:06] LABS: FERRITIN 287 ng/mL (8-252); LACTATE DEHYDROGENASE 363 U/L (81-234)
[2021-11-14] MEDS: CEFEPIME HCL 1 G in IV DEXTROSE 5% 50 ML IV SCH (17:10)
--- NOTE | 2021-11-14 18:48 | NUR ---
pt is calm and relax. tolerated feeding well. no sob; no acute distress noted. NPO midnight; edg+peg placement alejandra f/u with control supervisor and surgery.
--- NOTE | 2021-11-14 20:00 | NUR ---
Patient asleep but arousable, no sob no chest pain, NGT in place, no nausea no vomiting, no residual noted, no complain of pain, kept comfortable, cont to monitor.
[2021-11-14] MEDS: risperiDONE 2 MG TABLET NG SCH (21:16)
[2021-11-14] MEDS: ATORVASTATIN 10 MG TABLET NG SCH (21:16)
[2021-11-14] MEDS: INSULIN REGULAR, HUMAN 300 UNITS/3 ML VIAL SQ PRN (21:21)
[2021-11-15] MEDS: IPRATROPIUM BROMIDE 0.5 MG/2.5 ML NEBU NEB SCH ×6 (03:12→23:46)
[2021-11-15] MEDS: ALBUTEROL SULFATE 2.5 MG/3 ML NEBU NEB SCH ×6 (03:12→23:47)
[2021-11-15 04:00] VITALS: BP 145/64
[2021-11-15] MEDS: BLOOD SUGAR DIAGNOSTIC 1 EACH STRIP VI SCH ×4 (05:01→20:51)
[2021-11-15 06:54] LABS: HEMATOCRIT 23.1 % (31.2-41.9); MEAN CORPUSCULAR HEMOGLOBIN 31.3 uug (24.7-32.8); MEAN CORPUSCULAR VOLUME 92.7 fL (75.5-95.3); PLATELET COUNT (AUTO) 187 K/uL (179-408)
[2021-11-15 07:01] LABS: CARBON DIOXIDE 28 mmol/L (21-32); CHLORIDE 110 mmol/L (98-107); CREATININE 1.8 mg/dL (0.6-1.3); GLUCOSE 193 mg/dL (74-106); MAGNESIUM 2.1 mg/dL (1.8-2.4); PHOSPHOROUS 3.4 mg/dL (2.5-4.9); POTASSIUM 4.4 mmol/L (3.5-5.1); UREA NITROGEN, BLOOD 45 mg/dL (7-18)
[2021-11-15] MEDS: CHOLESTYRAMINE/SUCROSE 4 GM PACKET PO SCH (09:34)
[2021-11-15] MEDS: CLONIDINE HCL 0.1 MG TABLET NG SCH ×2 (09:34→17:32)
[2021-11-15] MEDS: FLUCONAZOLE 100 MG TABLET PO SCH (09:34)
[2021-11-15] MEDS: DOCUSATE SODIUM 100 MG/10 ML LIQUID UDC GT SCH ×3 (09:34→20:24)
[2021-11-15] MEDS: DIVALPROEX SPRINKLE 125 MG CAP.SPRINK GT SCH ×2 (09:35→17:32)
[2021-11-15] MEDS: AMLODIPINE 5 MG TABLET PO SCH ×2 (09:35→20:24)
[2021-11-15] MEDS: METOPROLOL TARTRATE 50 MG TABLET NG SCH ×2 (09:35→20:25)
[2021-11-15] MEDS: REMEDY ESSENTIAL ZINC PASTE 113 GM TOP SCH ×2 (09:36→20:26)
[2021-11-15 11:50] VITALS: BP 185/75
[2021-11-15 16:09] VITALS: BP 179/69
[2021-11-15] MEDS: INSULIN REGULAR, HUMAN 300 UNIT/3 ML VIAL SQ PRN ×2 (16:36→20:52)
[2021-11-15] MEDS: CEFEPIME HCL 1 G in IV DEXTROSE 5% 50 ML IV SCH (17:35)
[2021-11-15 20:00] VITALS: BP 189/79
[2021-11-15] MEDS: risperiDONE 2 MG TABLET NG SCH (20:25)
[2021-11-15] MEDS: ATORVASTATIN 10 MG TABLET NG SCH (20:25)
[2021-11-15] MEDS: FERROUS SULFATE 325 MG TABEC PO SCH (20:25)
[2021-11-16 04:00] VITALS: BP 145/61
[2021-11-16] MEDS: IPRATROPIUM BROMIDE 0.5 MG/2.5 ML NEBU NEB SCH ×6 (04:57→23:53)
[2021-11-16] MEDS: ALBUTEROL SULFATE 2.5 MG/3 ML NEBU NEB SCH ×6 (04:58→23:55)
[2021-11-16] MEDS: PANTOPRAZOLE ORAL SUSPENSION 40 MG SUSPDR.PKT NG SCH (06:02)
[2021-11-16] MEDS: LEVOTHYROXINE SODIUM 50 MCG TABLET NG SCH (06:02)
[2021-11-16] MEDS: BLOOD SUGAR DIAGNOSTIC 1 EACH STRIP VI SCH ×4 (06:30→21:00)
--- NOTE | 2021-11-16 06:30 | NUR ---
No coverage with insulin this am. patient NPO midnight.
[2021-11-16 07:01] LABS: HEMATOCRIT 24.8 % (31.2-41.9); MEAN CORPUSCULAR HEMOGLOBIN 30.2 uug (24.7-32.8); MEAN CORPUSCULAR VOLUME 91.8 fL (75.5-95.3); PLATELET COUNT (AUTO) 182 K/uL (179-408)
[2021-11-16 07:13] LABS: CARBON DIOXIDE 26 mmol/L (21-32); CHLORIDE 111 mmol/L (98-107); CREATININE 1.6 mg/dL (0.6-1.3); GLUCOSE 164 mg/dL (74-106); MAGNESIUM 2.3 mg/dL (1.8-2.4); PHOSPHOROUS 3.6 mg/dL (2.5-4.9); POTASSIUM 4.1 mmol/L (3.5-5.1); UREA NITROGEN, BLOOD 40 mg/dL (7-18); VANCOMYCIN,RANDOM 16.7 ug/mL (18.0-26.0)
[2021-11-16] MEDS: CHOLESTYRAMINE/SUCROSE 4 GM PACKET PO SCH (09:00)
[2021-11-16] MEDS: FERROUS SULFATE 325 MG TABEC PO SCH ×2 (09:00→22:09)
[2021-11-16] MEDS: CINACALCET HCL 30 MG TABLET PO SCH (09:00)
[2021-11-16] MEDS: METOPROLOL TARTRATE 50 MG TABLET NG SCH ×2 (09:00→22:09)
[2021-11-16] MEDS: DIVALPROEX SPRINKLE 125 MG CAP.SPRINK GT SCH ×2 (09:00→18:11)
[2021-11-16] MEDS: AMLODIPINE 5 MG TABLET PO SCH ×2 (09:00→22:10)
[2021-11-16] MEDS: CLONIDINE HCL 0.1 MG TABLET NG SCH ×2 (09:00→18:12)
[2021-11-16] MEDS: FLUCONAZOLE 100 MG TABLET PO SCH (09:00)
[2021-11-16] MEDS: REMEDY ESSENTIAL ZINC PASTE 113 GM TOP SCH ×2 (09:00→21:00)
[2021-11-16] MEDS: DOCUSATE SODIUM 100 MG/10 ML LIQUID UDC GT SCH ×3 (09:00→22:07)
[2021-11-16 11:49] VITALS: BP 153/57
--- NOTE | 2021-11-16 14:14 | NUR ---
pt came back from peg tube placement. pt afebrile; no sob; no pain complain; post op order received; resume prescribe meds; use peg for meds and water in 4 hrs (1730); use peg for tube feeding tommorow am.
[2021-11-16 16:00] VITALS: BP 168/72
[2021-11-16] MEDS ORDERED: VANCOMYCIN IV 1,000 MG in IV DEXTROSE 5% 250 ML IV ONE (18:00)
[2021-11-16] MEDS: ACETAMINOPHEN 325 MG TABLET NG PRN (18:12)
[2021-11-16] MEDS: CEFEPIME HCL 1 G in IV DEXTROSE 5% 50 ML IV SCH (18:13)
[2021-11-16] MEDS: INSULIN REGULAR, HUMAN 300 UNIT/3 ML VIAL SQ PRN ×2 (18:28→22:20)
[2021-11-16] MEDS ORDERED: VITAMINS A AND D OINT TP SCH (19:00)
[2021-11-16 20:00] VITALS: BP 153/61
[2021-11-16] MEDS: AMMONIUM LACTATE 12% LOTION 225 GM BOTTLE TP SCH (20:00)
[2021-11-16] MEDS: ATORVASTATIN 10 MG TABLET NG SCH (22:08)
[2021-11-16] MEDS: risperiDONE 2 MG TABLET NG SCH (22:09)
[2021-11-17] MEDS: ALBUTEROL SULFATE 2.5 MG/3 ML NEBU NEB SCH ×5 (03:48→21:06)
[2021-11-17] MEDS: IPRATROPIUM BROMIDE 0.5 MG/2.5 ML NEBU NEB SCH ×5 (03:48→21:06)
[2021-11-17 04:00] VITALS: BP 147/65
[2021-11-17] MEDS: PANTOPRAZOLE ORAL SUSPENSION 40 MG SUSPDR.PKT NG SCH (06:45)
[2021-11-17] MEDS: LEVOTHYROXINE SODIUM 50 MCG TABLET NG SCH (06:45)
[2021-11-17 06:50] LABS: CARBON DIOXIDE 26 mmol/L (21-32); CHLORIDE 115 mmol/L (98-107); CREATININE 1.6 mg/dL (0.6-1.3); GLUCOSE 81 mg/dL (74-106); MAGNESIUM 2.5 mg/dL (1.8-2.4); PHOSPHOROUS 3.3 mg/dL (2.5-4.9); POTASSIUM 4.7 mmol/L (3.5-5.1); UREA NITROGEN, BLOOD 38 mg/dL (7-18)
[2021-11-17] MEDS: BLOOD SUGAR DIAGNOSTIC 1 EACH STRIP VI SCH ×4 (07:48→21:00)
[2021-11-17 08:00] LABS: HEMATOCRIT 24.4 % (31.2-41.9); MEAN CORPUSCULAR HEMOGLOBIN 29.8 uug (24.7-32.8); MEAN CORPUSCULAR VOLUME 92.3 fL (75.5-95.3); PLATELET COUNT (AUTO) 207 K/uL (179-408)
[2021-11-17] MEDS ORDERED: FLUCONAZOLE 100 MG TABLET GT SCH (08:31)
--- NOTE | 2021-11-17 08:43 | NUR ---
Shift Note: RECEIVED REPORT FROM AM NURSE JOSHUA PT IS ALERT AND ORIENTED X1 AND IS S/P PEG PLACEMENT NO SIGNS OF DISTRESS NOTED MEDICATION GIVEN ORDERED NO SIGNS OF DISTRESS NOTED. PT MONITORED THROUGHOUT SHIFT FOR FALLS AND SAFETY. PT AM BLOOD SUGAR IS 138 NO SIGNS OF DIABETIC REACTION NOTED. HAVE ENDORSE TO AM NURSE.
[2021-11-17] MEDS: DIVALPROEX SPRINKLE 125 MG CAP.SPRINK GT SCH ×2 (09:52→16:45)
[2021-11-17] MEDS: AMLODIPINE 5 MG TABLET GT SCH ×2 (09:53→22:16)
[2021-11-17] MEDS: AMMONIUM LACTATE 12% LOTION 225 GM BOTTLE TP SCH ×2 (09:54→16:45)
[2021-11-17] MEDS: REMEDY ESSENTIAL ZINC PASTE 113 GM TOP SCH ×2 (09:54→21:00)
[2021-11-17] MEDS: CLONIDINE HCL 0.1 MG TABLET NG SCH ×2 (09:54→16:45)
[2021-11-17] MEDS: METOPROLOL TARTRATE 50 MG TABLET NG SCH ×2 (09:54→22:16)
[2021-11-17] MEDS: DOCUSATE SODIUM 100 MG/10 ML LIQUID UDC GT SCH ×2 (09:55→22:14)
[2021-11-17] MEDS: CHOLESTYRAMINE/SUCROSE 4 GM PACKET PO SCH (09:56)
[2021-11-17] MEDS: FERROUS SULFATE 300 MG/5 ML LIQUID UDC GT SCH ×2 (09:56→22:14)
[2021-11-17] MEDS: GLUCERNA 1.2 1000ML LIQUID NG PRN (10:00)
[2021-11-17 11:16] VITALS: BP 135/73
[2021-11-17] MEDS: INSULIN REGULAR, HUMAN 300 UNIT/3 ML VIAL SQ PRN ×2 (12:14→16:50)
[2021-11-17 16:40] VITALS: BP 108/44
[2021-11-17] MEDS ORDERED: PROPOFOL 200 MG/20 ML BOTTLE IV ONE (17:53)
[2021-11-17] MEDS ORDERED: LIDOCAINE-MPF 2% 5 ML VIAL IJ ONE (17:53)
[2021-11-17] MEDS ORDERED: CEFAZOLIN 1 G VIAL IM ONE (17:53)
--- NOTE | 2021-11-17 18:48 | NUR ---
pt resting on bed comfortably. no acute distress noted. no nausea or vomiting noted.pt tolerated feeding well, no residual. wound treatment done. gtube flushes done. reposition q2hr. kayleen heel offloading.
[2021-11-17 20:46] VITALS: BP 146/68
[2021-11-17] MEDS: risperiDONE 2 MG TABLET NG SCH (22:15)
[2021-11-17] MEDS: ATORVASTATIN 10 MG TABLET NG SCH (22:15)
[2021-11-17] MEDS: INSULIN REGULAR, HUMAN 300 UNITS/3 ML VIAL SQ PRN (22:59)
[2021-11-18] MEDS: IPRATROPIUM BROMIDE 0.5 MG/2.5 ML NEBU NEB SCH ×5 (00:10→15:04)
[2021-11-18] MEDS: ALBUTEROL SULFATE 2.5 MG/3 ML NEBU NEB SCH ×5 (00:10→15:04)
[2021-11-18 04:16] VITALS: BP 167/69
[2021-11-18] MEDS: PANTOPRAZOLE ORAL SUSPENSION 40 MG SUSPDR.PKT NG SCH (06:03)
[2021-11-18] MEDS: LEVOTHYROXINE SODIUM 50 MCG TABLET NG SCH (06:03)
[2021-11-18 06:24] LABS: HEMATOCRIT 24.6 % (31.2-41.9); MEAN CORPUSCULAR HEMOGLOBIN 29.9 uug (24.7-32.8); MEAN CORPUSCULAR VOLUME 92.1 fL (75.5-95.3); PLATELET COUNT (AUTO) 240 K/uL (179-408)
[2021-11-18 06:33] LABS: CARBON DIOXIDE 28 mmol/L (21-32); CHLORIDE 112 mmol/L (98-107); CREATININE 1.6 mg/dL (0.6-1.3); GLUCOSE 184 mg/dL (74-106); MAGNESIUM 2.4 mg/dL (1.8-2.4); POTASSIUM 4.6 mmol/L (3.5-5.1); UREA NITROGEN, BLOOD 34 mg/dL (7-18)
--- NOTE | 2021-11-18 06:37 | NUR ---
uneventful night. pt sleep throughout the night. no acute distress noted. afebrile. pt tolerated feeding well. wound dressing intact. fc patent and draining well.
[2021-11-18] MEDS: BLOOD SUGAR DIAGNOSTIC 1 EACH STRIP VI SCH (06:44)
[2021-11-18 07:06] LABS: A/G RATIO 0.5 (0.7-1.7); ALBUMIN 1.6 g/dL (2.9-4.4); ALPHA-1-GLOBULIN 0.4 g/dL (0.0-0.4); ALPHA-2-GLOBULIN 0.9 g/dL (0.4-1.0); BETA GLOBULIN 0.8 g/dL (0.7-1.3); GAMMA GLOBULIN 1.2 g/dL (0.4-1.8); GLOBULIN, TOTAL 3.2 g/dL (2.2-3.9); M-SPIKE 0.5 g/dL (Not Observed)
[2021-11-18] MEDS: INSULIN REGULAR, HUMAN 300 UNIT/3 ML VIAL SQ PRN (08:54)
[2021-11-18] MEDS: AMMONIUM LACTATE 12% LOTION 225 GM BOTTLE TP SCH (09:00)
[2021-11-18] MEDS: FERROUS SULFATE 300 MG/5 ML LIQUID UDC GT SCH (09:00)
[2021-11-18] MEDS: REMEDY ESSENTIAL ZINC PASTE 113 GM TOP SCH (09:00)
[2021-11-18] MEDS ORDERED: DIVA125C2 GT (09:24)
[2021-11-18] MEDS ORDERED: Glucerna 1.2 NG (09:24)
[2021-11-18] MEDS ORDERED: AMLO-212 GT (09:24)
[2021-11-18] MEDS ORDERED: CLON0.1T NG (09:24)
[2021-11-18] MEDS ORDERED: METO50TA16 NG (09:24)
[2021-11-18] MEDS ORDERED: FERR300L GT (09:24)
[2021-11-18] MEDS: CHOLESTYRAMINE/SUCROSE 4 GM PACKET PO SCH (09:57)
[2021-11-18] MEDS: DOCUSATE SODIUM 100 MG/10 ML LIQUID UDC GT SCH (09:58)
[2021-11-18] MEDS: AMLODIPINE 5 MG TABLET GT SCH (09:58)
[2021-11-18] MEDS: METOPROLOL TARTRATE 50 MG TABLET NG SCH (09:59)
[2021-11-18] MEDS: DIVALPROEX SPRINKLE 125 MG CAP.SPRINK GT SCH (10:00)
[2021-11-18] MEDS: CLONIDINE HCL 0.1 MG TABLET NG SCH (10:00)
[2021-11-18 11:30] VITALS: BP 154/66
--- NOTE | 2021-11-18 17:57 | NUR ---
PT TOLERATED MEDICATIONS THROUGH GT UBE THIS MORNING,BS SHRIMP PEELING MACHINE OPERATOR WAS 175 SO 3UNITS OF INSULIN GIVEN,,PT WAS TRANSFERRED TO [facility] @2PM
== END 2021-11-18 15:00 | DRG 871 ==
LOC: ER 10:16 → TELE3 12:30 → MEDSURG3 11-08 06:47
PROVIDERS: ADMIT Internal Medicine; ATTEND Nurse Practitioner Acute Care
PROC: 05H633Z Insertion of Infusion Device into Left Subclavian Vein, Percutaneous Approach (ICD-10-PCS; principal; 2021-11-05)
PROC: B547ZZA Ultrasonography of Left Subclavian Vein, Guidance (ICD-10-PCS; 2021-11-05)
PROC: 05H533Z Insertion of Infusion Device into Right Subclavian Vein, Percutaneous Approach (ICD-10-PCS; 2021-11-08)
PROC: B546ZZA Ultrasonography of Right Subclavian Vein, Guidance (ICD-10-PCS; 2021-11-08)
PROC: 30233N1 Transfusion of Nonautologous Red Blood Cells into Peripheral Vein, Percutaneous Approach (ICD-10-PCS; 2021-11-10)
PROC: 0DH63UZ Insertion of Feeding Device into Stomach, Percutaneous Approach (ICD-10-PCS; 2021-11-16)
DX: A41.9 Sepsis, unspecified organism (principal); N17.0 Acute kidney failure with tubular necrosis; J96.01 Acute respiratory failure with hypoxia; E43 Unspecified severe protein-calorie malnutrition; G92.8 Other toxic encephalopathy; N39.0 Urinary tract infection, site not specified; B37.1 Pulmonary candidiasis; E87.0 Hyperosmolality and hypernatremia; N25.81 Secondary hyperparathyroidism of renal origin; J44.0 Chronic obstructive pulmonary disease with (acute) lower respiratory infection; J44.1 Chronic obstructive pulmonary disease with (acute) exacerbation; I13.0 Hypertensive heart and chronic kidney disease with heart failure and stage 1 through stage 4 chronic kidney disease, or unspecified chronic kidney disease; K51.30 Ulcerative (chronic) rectosigmoiditis without complications; E03.9 Hypothyroidism, unspecified; F03.90 Unspecified dementia, unspecified severity, without behavioral disturbance, psychotic disturbance, mood disturbance, and anxiety; Z79.82 Long term (current) use of aspirin; D64.9 Anemia, unspecified; N18.9 Chronic kidney disease, unspecified; Z20.822 Contact with and (suspected) exposure to COVID-19; F31.9 Bipolar disorder, unspecified; E86.0 Dehydration; E83.52 Hypercalcemia; E78.5 Hyperlipidemia, unspecified; E11.22 Type 2 diabetes mellitus with diabetic chronic kidney disease; Z68.23 Body mass index [BMI] 23.0-23.9, adult; L89.626 Pressure-induced deep tissue damage of left heel; L89.616 Pressure-induced deep tissue damage of right heel; S90.821A Blister (nonthermal), right foot, initial encounter; X58.XXXA Exposure to other specified factors, initial encounter; Y93.9 Activity, unspecified; Y92.89 Other specified places as the place of occurrence of the external cause; B96.20 Unspecified Escherichia coli [E. coli] as the cause of diseases classified elsewhere; E88.09 Other disorders of plasma-protein metabolism, not elsewhere classified; D50.9 Iron deficiency anemia, unspecified; K31.7 Polyp of stomach and duodenum; D17.79 Benign lipomatous neoplasm of other sites; I50.9 Heart failure, unspecified
CPT/HCPCS: 36415; 43761; 51702; 70030-TC; 71045; 73630; 76770; 80164; 82378; 82746; 82784; 83550; 83605; 83615; 83735; 84100; 84155; 84165; 84300; 84443; 84484; 85025; 85730; 86334; 86850; 86900; 86901; 86920; 87040; 87070; 87075; 87077; 87086; 87400; 93005; 93307; 94640; 94664; A4663; A6209; A6213; G0378; J0690; J0692; J0696; J1644; J1815; J1940; J2185; J2405; J2920; J3370; J3475; J3480; J3490; J3590; J7040; J7050; J7070; P9016